=== PATIENT | female | born 1945 | race Two or more races ===

== ENCOUNTER 2023-01-04 20:01 | Emergency (ER) | payer OTHER ==
[~2023-01-04] VITALS: Ht 149.9 cm; Wt 59.1 kg
[2023-01-04 21:42] LABS: Basophils # (auto) 0.1 10 ^3/uL (0-0.2); Basophils % (auto) 0.5 % (0.0-2.0); Eosinophils # (auto) 0 10 ^3/uL (0-0.8); Hemoglobin 13.4 g/dL (12.2-16.2); Lymphocytes # (auto) 0.8 10 ^3/uL (0.4-5.4); Lymphocytes % (auto) 5.6 % (10.0-50.0); Mean Corpuscular Hemoglobin 28.6 pg (28.0-32.0); Mean Corpuscular Hgb Conc. 33.5 g/dL (32.0-36.0); Mean Corpuscular Volume 85.4 fL (80.0-100.0); Monocytes # (auto) 0.5 10 ^3/uL (0-1.3); Monocytes % (auto) 3.9 % (0.0-12.0); Neutrophils # (auto) 12.8 10 ^3/uL (1.6-8.6); Red Blood Cells 4.68 10^6/uL (4.0-5.20); Red Cell Distribution Width 13.6 % (11.8-14.3); White Blood Cell 14.2 10^3/uL (4.4-10.8)
[2023-01-04 21:55] LABS: INR 0.97 (0.9-1.15); Partial Thromboplastin Time 28.4 SEC (24.5-34.5)
[2023-01-04 21:57] LABS: Albumin 4.2 g/dL (3.4-5.0); Calcium 9.2 mg/dL (8.5-10.1); Magnesium 2.2 mg/dL (1.6-2.6)
[2023-01-04 22:00] LABS: BUN/Creatinine Ratio 11.3 (10.0-20.0); Bilirubin, Total 0.5 mg/dL (0.2-1.0); Total Protein 7.9 g/dL (6.4-8.2)
[2023-01-04] MEDS ORDERED: IOHEXOL 350 MG/ML 100ML IJ ONE (23:33)
[2023-01-05] MEDS ORDERED: CEFTRIAXONE SODIUM 2 GM in D5W 5% 100 ML IV ONE (01:00)
[2023-01-05 01:32] LABS: Urine Bacteria NONE SEEN /hpf (None Seen); Urine Blood TRACE /uL (Negative); Urine Mucus FEW (None Seen); Urine WBC 4 /hpf (0 - 5)
[2023-01-05 01:36] LABS: Urine Specific Gravity > 1.050 (1.001-1.035)
[2023-01-05] MEDS ORDERED: SODIUM CHLORIDE 0.9% 1,000 ML IV ONE (02:30)
[2023-01-05] MEDS ORDERED: ONDANSETRON ODT 4 MG TAB PO ONE (03:30)
[2023-01-05] MEDS ORDERED: cefTRIAXone 1GM/50ML D5W 50 ML IV ONE ×2 (05:00)
[2023-01-05 05:12] VITALS: O2SAT 95
[2023-01-05 06:10] VITALS: PULSE 77; RESP 20; O2SAT 96
[2023-01-05 08:18] VITALS: PULSE 90; RESP 20; O2SAT 96
[2023-01-05 09:28] VITALS: BP 126/60; PULSE 76; RESP 16; TEMP 98; O2SAT 95
== END 2023-01-05 09:43 | disposition short-term general hospital (02) ==
LOC: ER 20:05
DX: E87.1 Hypo-osmolality and hyponatremia (principal); G25.2 Other specified forms of tremor; R06.02 Shortness of breath
CPT/HCPCS: 36415; 70450; 71045; 71260; 74177; 80053; 81001; 83605; 83690; 83735; 83880; 84484; 85025; 85379; 85610; 85730; 87040; 96365; 99285; J0696; J7030; Q0162; Q9967; J7060